=== PATIENT | female | born 1955 | race Caucasian/White ===

== ENCOUNTER → 2019-03-22 08:39 | Outpatient (CLI) | payer BC ==
--- NOTE | 2019-03-25 09:50 | ST ---
PATIENT:MADELIN HENSLEY MEDICAL RECORD: [id number] SEX: F LOCATION:[facility] ORDER #: ADMISSION DATE: 03/22/19 AGE OF PATIENT: 63 REFERRING PHYSICIAN: INTERPRETING PHYSICIAN: RISHABH ZAFAR MD DATE OF SERVICE: 03/22/2019 NUCLEAR STRESS TEST INDICATION: Angina, shortness of breath, hypertension, and hyperlipidemia. He was exercised on standard Lexiscan protocol with 27 mCi of sestamibi injected at peak stress, 9 mCi were used previously for rest images. FINDINGS: Gated SPECT reveals preserved ejection fraction at 87% with good wall motion and thickening and brightening throughout all segments. SPECT imaging Cardiolite was used as myocardial fusion agent. There is homogeneous uptake throughout all segments at rest and stress with no evidence of inducible ischemia or previous infarction. OVERALL IMPRESSION: 1. This is a normal nuclear stress test with no evidence of inducible ischemia or previous infarction. 2. Gated SPECT reveals a preserved ejection fraction at 87%. In this patient with ongoing symptomatology, the current scan does not suggest the presence of hemodynamically significant coronary artery disease. Evaluate noncardiac etiology of chest pain. TRANSINT:[id number] Voice Confirmation ID: [id number] DOCUMENT ID: [id number] RISHABH ZAFAR MD at 0950 CC: SONU DELONG [id number] DICTATION DATE: 03/22/19 1419 INSURANCE CLAIMS REPRESENTATIVE: 03/23/19 0012 DEP CLI 03/22/19 [facility] [address] [place] [address]
== END | disposition home or self-care (01) ==
LOC: D.HCCARDIO 03-15 10:30
PROVIDERS: ATTEND Internal Medicine Interventional Cardiology
DX: I20.9 Angina pectoris, unspecified (principal)